=== PATIENT | female | born 1985 | race Caucasian/White ===

== ENCOUNTER 2016-12-08 20:32 | Emergency (ER) | END 2016-12-08 23:39 | disposition home or self-care (01) | DX: J20.9 Acute bronchitis, unspecified (principal) | CPT/HCPCS: 36415; 71010; 80053; 81003; 85025; Z7502 ==

== ENCOUNTER 2017-12-03 13:34 | Emergency (ER) | END 2017-12-03 16:00 | disposition left against medical advice (07) ==

== ENCOUNTER 2017-12-24 17:40 | Emergency (ER) | END 2017-12-24 20:09 | disposition left against medical advice (07) ==